=== PATIENT | male | born 1955 | race African-American/Black ===

== ENCOUNTER 2016-07-10 17:06 | Emergency (ER) | payer MEDICARE, MEDICAID ==
[~2016-07-10] VITALS: Ht 182.9 cm; Wt 79.4 kg
[~2016-07-10 17:06] MED LIST: ATRIPLA TABLET1 EAC1 ORAL; BACTRIM DS TAB1 EAC1 ORAL; DOXYCYCLINE MO100 MG ORAL; KEFLEX500 MG ORAL; NORCO 5-325 TA1 EACH ORAL; TYLENOL325 MG ORAL
[2016-07-10] MEDS ORDERED: Lidocaine 1% MPF 10mg/ml 5ml ONE (18:00)
[2016-07-10] MEDS ORDERED: Acetaminophen 500mg (ES) tab ORAL ONE (18:00)
[2016-07-10] MEDS ORDERED: Phenazopyridine 200mg tab ORAL ONE (18:00)
[2016-07-10 18:01] LABS: APPEARANCE,URINE CLEAR; KETONES,URINE 1+ (NEGATIVE); LEUKOCYTE ESTERASE ,URINE 1+ (NEGATIVE); NITRITE,URINE NEGATIVE (NEGATIVE); PH,URINE 5 (4.5-8.0); PROTEIN,URINE 2+ (NEGATIVE); UROBILINOGEN,URINE 1 MG/DL (0.0-1.0)
[2016-07-10 18:14] LABS: AMORPHOUS SEDIMENT,UR FEW /LPF; BACTERIA,URINE FEW /HPF; ICTOTEST NEGATIVE; RBC,URINE 0-2 /HPF (0 - 0)
--- NOTE | 2016-07-10 18:26 | Emergency Room Report ---
History of Present Illness General Chief Complaint: Male Urogenital Problems Source: Patient Present Illness HPI 60-year-old male presents emergency department complaining of dysuria, dark- colored urine with mal-odor with onset shortly after having recent unprotected intercourse. Patient denies hematuria, penile discharge or lesions. Patient denies nausea, vomiting, fevers or chills. Patient reports history of STDs and wants to be treated prophylactically. Patient reports immunocompromise. Denies hx of renal disease. Patient denies abdominal pain, chest pain, muscle aches or cramps. Patient denies low back pain. Denies CP, Palpitations, LOC, AMS, dizziness, Changes in Vision, Sensation, paresthesias, or a sudden severe headache. Allergies: Coded Allergies: No Known Allergies (Unverified , 02/12/14) Patient History Past Medical History: see triage record, HIV Past Surgical History: none Pertinent Family History: none Immunizations: UTD Reviewed Nursing Documentation: PMH: Agreed, PSxH: Agreed Nursing Documentation-PMH Past Medical History: No History, Except For Hx Asthma: Yes Review of Systems All Other Systems: negative except mentioned in HPI Physical Exam Vital Signs Date Time Temp Pulse Resp B/P Pulse Ox O2 Delivery O2 Flow Rate FiO2 07/10/16 17:13 99.1 105 14 124/81 99 Room Air Sp02 EP Interpretation: reviewed, normal General Appearance: no apparent distress, alert, GCS 15, non-toxic Head: normocephalic, atraumatic Eyes: bilateral eye PERRL, bilateral eye normal inspection ENT: hearing grossly normal, normal pharynx, no angioedema, normal voice Neck: full range of motion, supple/symm/no masses Respiratory: chest non-tender, lungs clear, normal breath sounds, speaking full sentences Cardiovascular #1: regular rate, rhythm, no edema Cardiovascular #2: 2+ carotid (R), 2+ carotid (L), 2+ radial (R), 2+ radial (L) , 2+ dorsalis pedis (R), 2+ dorsalis pedis (L) Gastrointestinal: normal bowel sounds, non tender, soft, no guarding, no rebound Rectal: deferred Genitourinary: normal inspection, no CVA tenderness Musculoskeletal: back normal, gait/station normal, normal range of motion, non- tender, no calf tenderness Neurologic: alert, oriented x3, responsive, motor strength/tone normal, sensory intact, speech normal Psychiatric: judgement/insight normal, memory normal, mood/affect normal, no suicidal/homicidal ideation Reflexes: 4+ bicep (R), 4+ bicep (L), 4+ tricep (R), 4+ tricep (L), 4+ knee (R) , 4+ knee (L) Skin: normal color, no rash, warm/dry, well hydrated Lymphatic: no adenopathy Medical Decision Making PA Attestation Dr. Velasquez is my supervising Physician whom patient management has been discussed with. Diagnostic Impression: Primary Impression: Urethritis Additional Impression: Dysuria ER Course Pt. presents to the ED c/o Dysuria, and dark urine s/p recent unprotected intercourse, denies N/V/F/C or muscle cramps. Ddx considered but are not limited to UTi , STI, G & C, trichomonas, Urethritis , cyst or cellulitis. Vital signs: are WNL, pt. is afebrile H&PE are most consistent with Urethritis ORDERS: -UA: few bacteria, no WBC's , leukocyte esterase is noted, UTI not suspected at this time, urine will be cultured. ED INTERVENTIONS: -250mg Rocephin IM -200mg Pyridium DISCHARGE: At this time pt. is stable for d/c to home. Will provide printed patient care instructions, and any necessary prescriptions. Care plan and follow up instructions have been discussed with the patient prior to discharge. Labs Test 07/10/16 17:32 Urine Color Brown Urine Appearance Clear Urine pH 5 (4.5-8.0) Urine Specific [place] 1.025 (1.005-1.035) Urine Protein 2+ (NEGATIVE) Urine Glucose (UA) Negative (NEGATIVE) Urine Ketones 1+ (NEGATIVE) Urine Occult Blood 1+ (NEGATIVE) Urine Nitrite Negative (NEGATIVE) Urine Bilirubin 1+ (NEGATIVE) Urine Ictotest Negative Urine Urobilinogen 1 MG/DL (0.0-1.0) Urine Leukocyte Esterase 1+ (NEGATIVE) Urine RBC 0-2 /HPF (0 - 0) Urine WBC 2-4 /HPF (0 - 0) Urine Squamous Epithelial Cells None /LPF (NONE/OCC) Urine Amorphous Sediment Few /LPF (NONE) Urine Bacteria Few /HPF (NONE) Last Vital Signs Date Time Temp Pulse Resp B/P Pulse Ox O2 Delivery O2 Flow Rate FiO2 07/10/16 17:13 99.1 105 14 124/81 99 Room Air Disposition: HOME, SELF-CARE Condition: Stable Scripts Phenazopyridine Hcl* (PYRIDIUM*) 200 Mg Tablet 200 MG ORAL THREE TIMES A DAY for 4 Days, #14 TAB 0 Refills Prov: Flores Ramirez 07/10/16 Doxycycline Hyclate* (VIBRAMYCIN*) 100 Mg Capsule 100 MG ORAL EVERY 12 HOURS for 7 Days, #14 CAP 0 Refills Prov: Flores Ramirez 07/10/16 Referrals: NON PHYSICIAN (PCP) Patient Instructions: Urethritis, Adult Additional Instructions: Take medications as directed. Follow up with PCP in 3-5 days Return sooner to ED if new symptoms occur, or current symptoms become worse. Flores Ramirez Jul 10, 2016 18:26
[2016-07-10] MEDS ORDERED: PHENAZOPYRIDIN200 MG ORAL (18:27)
[2016-07-10] MEDS ORDERED: VIBRAMYCIN100 MG ORAL (18:27)
[2016-07-10 18:47] VITALS: BP 127/83
[2016-07-10 18:51] VITALS: BP 127/83
== END 2016-07-10 18:52 | disposition home or self-care (01) ==
LOC: EMR 18:19
DX: N34.2 Other urethritis (principal); J45.909 Unspecified asthma, uncomplicated
CPT/HCPCS: 81003; 96372; 99284; J0696

== ENCOUNTER 2018-10-13 15:05 | Inpatient (IN) | payer MEDICARE, MEDICAID ==
[~2018-10-13] VITALS: Ht 182.9 cm; Wt 77.1 kg
[~2018-10-13 15:05] MED LIST changes: +PHENAZOPYRIDIN200 MG ORAL; +VIBRAMYCIN100 MG ORAL
[2018-10-13] MEDS ORDERED: TYLENOL EXTRA500 MG ORAL (15:15)
[2018-10-13] MEDS ORDERED: Acetaminophen 500mg (ES) tab ORAL ONE (15:15)
--- NOTE | 2018-10-13 15:50 | Emergency Room Report ---
History of Present Illness General Chief Complaint: General Complaint Source: Patient, EMS Present Illness HPI Patient presents with 4-5 days of increasing weakness and fever and chills. He also has a productive cough that's producing green phlegm. He also complains about swelling in his right groin. He describes this is bubbling out and then be able to be pushed back in. There are no skin lesions in that area. He is concerned about whether this is a connected to his prostate. He felt cold and bundled himself up. Paramedics stated temperature that was minimally elevated. His appetite has been poor. He feels weak. The patient is HIV positive. He states he stable on his medications. He denies previous pneumonia. No skin rashes, headache, neck stiffness, nausea, vomiting, diarrhea, dysuria or joint pain. Allergies: Coded Allergies: No Known Allergies (Unverified , 02/12/14) Patient History Past Medical History: see triage record Social History: Denies: smoking, alcohol use Social History Narrative from home Reviewed Nursing Documentation: PMH: Agreed; PSxH: Agreed Nursing Documentation-PMH Hx Asthma: Yes Review of Systems All Other Systems: negative except mentioned in HPI Physical Exam Vital Signs Date Time Temp Pulse Resp B/P (MAP) Pulse Ox O2 Delivery O2 Flow Rate FiO2 10/13/18 15:06 99.5 118 18 146/100 98 Room Air Sp02 EP Interpretation: reviewed, normal General Appearance: well appearing, no apparent distress, GCS 15 Head: normocephalic, atraumatic Eyes: bilateral eye normal inspection, bilateral eye PERRL, bilateral eye EOMI ENT: normal pharynx, moist mucus membranes Neck: supple Respiratory: no respiratory distress, decreased breath sounds, crackles - L base Cardiovascular #1: tachycardia Cardiovascular #2: 2+ radial (R) Gastrointestinal: normal inspection, normal bowel sounds, non tender, non- distended, hernia - R inguinal - easily reduced Genitourinary: penis normal, scrotum normal Musculoskeletal: back normal, normal range of motion Neurologic: alert, oriented x3, grossly normal Psychiatric: depressed affect Skin: normal inspection, warm/dry Medical Decision Making Diagnostic Impression: Primary Impression: Pneumonia Qualified Codes: J18.1 - Lobar pneumonia, unspecified organism Additional Impressions: Right inguinal hernia HIV (human immunodeficiency virus infection) Qualified Codes: B20 - Human immunodeficiency virus [HIV] disease ER Course Patient presents with fever and productive cough with history of HIV. Differential includes pneumonia, bronchitis, viral syndrome, pneumocystis amongst others. He also has a right inguinal hernia. This is nontender and easily reduced. Evaluation will be with EKG, chest x-ray and labs including blood cultures. The patient will be treated with Tylenol, fluid bolus. The patient and x-ray data antibiotics will most likely be started. Sputum culture ordered. EKG was sinus tachycardia. Chest x-ray with left lower lobe infiltrate. This does not appear classic for Pneumocystis nor does it appear like TB/SARWAT. Normal WBC, low H/H. Slightly low sodium and potassium. Lactic acid normal. Based on these findings Zosyn and Levaquin are started. BP low transiently. Bolus in ED. NAD, slightly tachycardic. Improved BP. Admit med Dr. Jc. Laboratory Tests Test 10/13/18 15:33 10/13/18 16:00 10/13/18 16:50 White Blood Count 7.4 K/UL (4.8-10.8) Red Blood Count 3.24 M/UL (4.70-6.10) L Hemoglobin 10.3 G/DL (14.2-18.0) L Hematocrit 29.5 % (42.0-52.0) L Mean Corpuscular Volume 91 FL (80-99) Mean Corpuscular Hemoglobin 31.8 PG (27.0-31.0) H Mean Corpuscular Hemoglobin Concent 35.0 G/DL (32.0-36.0) Red Cell Distribution Width 12.7 % (11.6-14.8) Platelet Count 230 K/UL (150-450) Mean Platelet Volume 5.1 FL (6.5-10.1) L Neutrophils (%) (Auto) 77.2 % (45.0-75.0) H Lymphocytes (%) (Auto) 13.7 % (20.0-45.0) L Monocytes (%) (Auto) 5.2 % (1.0-10.0) Eosinophils (%) (Auto) 3.0 % (0.0-3.0) Basophils (%) (Auto) 0.9 % (0.0-2.0) Sodium Level 132 MMOL/L (136-145) L Potassium Level 3.4 MMOL/L (3.5-5.1) L Chloride Level 99 MMOL/L (98-107) Carbon Dioxide Level 24 MMOL/L (21-32) Anion Gap 9 mmol/L (5-15) Blood Urea Nitrogen 11 mg/dL (7-18) Creatinine 1.4 MG/DL (0.55-1.30) H Estimate Glomerular Filtration Rate > 60 mL/min (>60) Glucose Level 140 MG/DL (74-106) H Lactic Acid Level 1.20 mmol/L (0.4-2.0) Calcium Level 7.9 MG/DL (8.5-10.1) L Magnesium Level 1.6 MG/DL (1.8-2.4) L Total Bilirubin 0.4 MG/DL (0.2-1.0) Aspartate Amino Transferase (AST) 19 U/L (15-37) Alanine Aminotransferase (ALT) 21 U/L (12-78) Alkaline Phosphatase 77 U/L (46-116) Total Creatine Kinase 102 U/L (26-308) Troponin I 0.003 ng/mL (0.000-0.056) Pro-B-Type Natriuretic Peptide 26 pg/mL (0-125) Total Protein 7.5 G/DL (6.4-8.2) Albumin 3.2 G/DL (3.4-5.0) L Globulin 4.3 g/dL Albumin/Globulin Ratio 0.7 (1.0-2.7) L Prothrombin Time 10.6 SEC (9.30-11.50) Prothrombin Time INR 1.0 (0.9-1.1) PTT 23 SEC (23-33) Urine Color Pale yellow Urine Appearance Clear Urine pH 6 (4.5-8.0) Urine Specific [place] 1.010 (1.005-1.035) Urine Protein 1+ (NEGATIVE) H Urine Glucose (UA) Negative (NEGATIVE) Urine Ketones Negative (NEGATIVE) Urine Blood 2+ (NEGATIVE) H Urine Nitrite Negative (NEGATIVE) Urine Bilirubin Negative (NEGATIVE) Urine Urobilinogen Normal MG/DL (0.0-1.0) Urine Leukocyte Esterase Negative (NEGATIVE) Urine RBC 2-4 /HPF (0 - 0) H Urine WBC 0-2 /HPF (0 - 0) Urine Squamous Epithelial Cells None /LPF (NONE/OCC) Urine Bacteria Few /HPF (NONE) EKG Diagnostic Results Rate: tachycardiac Rhythm: NSR ST Segments: no acute changes Rhythm Strip Diag. Results EP Interpretation: yes Rhythm: no PVC's, no ectopy, other - Sinus tachycardia Chest X-Ray Diagnostic Results Chest X-Ray Diagnostic Results : Chest X-Ray Ordered: Yes # of Views/Limited/Complete: 1 View Indication: Other EP Interpretation: Yes Interpretation: no effusion, no pneumothorax, other - LLL infiltrate Impression: Other Electronically Signed by: Electronically signed by Navjot Haley MD Last Vital Signs Date Time Temp Pulse Resp B/P (MAP) Pulse Ox O2 Delivery O2 Flow Rate FiO2 10/14/18 04:00 99.2 93 18 118/71 (87) 97 10/14/18 03:45 Room Air 10/14/18 03:23 21 Status: improved Disposition: ADMITTED INPATIENT Condition: Serious Navjot Haley MD Oct 13, 2018 15:50
[2018-10-13] MEDS ORDERED: Piperacillin/Tazobactam 3.375 GM in NS 110 ML IVPB ONE (16:00)
[2018-10-13 16:02] LABS: ANION GAP 9 mmol/L (5-15); BLOOD UREA NITROGEN 11 mg/dL (7-18); CALCIUM 7.9 MG/DL (8.5-10.1); CARBON DIOXIDE 24 MMOL/L (21-32); CHLORIDE 99 MMOL/L (98-107); CREATININE 1.4 MG/DL (0.55-1.30); POTASSIUM 3.4 MMOL/L (3.5-5.1); SODIUM 132 MMOL/L (136-145)
--- NOTE | 2018-10-13 16:07 | Diagnostic Imaging Report ---
Indication: Dyspnea Comparison: None A single view chest radiograph was obtained. Findings: Cardiomediastinal appearance is within normal limits for age. The lungs are clear. Pulmonary vascularity is appropriate. The diaphragmatic contour is smooth and costophrenic angles are sharp. No pleural effusions are identified. The bones are unremarkable. Impression: No acute findings
[2018-10-13 16:08] LABS: BASOPHILS % (AUTO) 0.9 % (0.0-2.0); HEMATOCRIT 29.5 % (42.0-52.0); HEMOGLOBIN 10.3 G/DL (14.2-18.0); LYMPHOCYTES % (AUTO) 13.7 % (20.0-45.0); MEAN CORPUSCULAR VOLUME 91 FL (80-99); MONOCYTES % (AUTO) 5.2 % (1.0-10.0); NEUTROPHILS % (AUTO) 77.2 % (45.0-75.0); PLATELET COUNT 230 K/UL (150-450); RED BLOOD COUNT 3.24 M/UL (4.70-6.10); RED CELL DISTRIBUTION WIDTH 12.7 % (11.6-14.8); WHITE BLOOD COUNT 7.4 K/UL (4.8-10.8)
[2018-10-13 16:13] LABS: ALANINE AMINOTRANSFERASE 21 U/L (12-78); ALBUMIN 3.2 G/DL (3.4-5.0); ALBUMIN/GLOBULIN RATIO 0.7 (1.0-2.7); ALKALINE PHOSPHATASE 77 U/L (46-116); ASPARTATE AMINO TRANSFERASE 19 U/L (15-37); BILIRUBIN,TOTAL 0.4 MG/DL (0.2-1.0); CREATINE KINASE 102 U/L (26-308)
[2018-10-13 16:53] VITALS: BP 106/55
[2018-10-13 17:17] LABS: APPEARANCE,URINE CLEAR; BILIRUBIN, URINE NEGATIVE (NEGATIVE); COLOR,URINE PALE YELLOW; GLUCOSE, URINE (UA) NEGATIVE (NEGATIVE); KETONES,URINE NEGATIVE (NEGATIVE); LEUKOCYTE ESTERASE ,URINE NEGATIVE (NEGATIVE); NITRITE,URINE NEGATIVE (NEGATIVE); PH,URINE 6 (4.5-8.0); PROTEIN,URINE 1+ (NEGATIVE); UROBILINOGEN,URINE NORMAL MG/DL (0.0-1.0)
--- NOTE | 2018-10-13 18:37 | Consultation ---
Consult Note Assessment/Plan electrolyte inbalance: Low Na , K , Mag Pneumonia Right inguinal hernia HIV (human immunodeficiency virus infection) Anemia Mag IV NS IV + K Anemia owen monitor Lytes per consultants Micheal Brooks MD Oct 13, 2018 18:37
[2018-10-13 20:00] VITALS: BP 104/69
[2018-10-13] MEDS ORDERED: Acetaminophen 500mg (ES) tab ORAL PRN (20:45)
[2018-10-13] MEDS ORDERED: Albuterol ud Inhalation HHN PRN (20:45)
[2018-10-13] MEDS ORDERED: Albuterol/Ipratropium 3ml neb HHN PRN (21:15)
[2018-10-13] MEDS: cefTRIAXone 1 GM in D5W 55 ML IVPB SCH (22:33)
[2018-10-14] VITALS: BP 120/75
[2018-10-14] MEDS: HYDROcodone/Acetamin 5/325 tab ORAL PRN ×3 (00:01→21:58)
[2018-10-14 04:00] VITALS: BP 118/71
[2018-10-14 07:47] LABS: BASOPHILS % (AUTO) 0.8 % (0.0-2.0); EOSINOPHILS % (AUTO) 2.9 % (0.0-3.0); HEMATOCRIT 30.7 % (42.0-52.0); HEMOGLOBIN 10.2 G/DL (14.2-18.0); LYMPHOCYTES % (AUTO) 28.4 % (20.0-45.0); MEAN CORPUSCULAR VOLUME 95 FL (80-99); MONOCYTES % (AUTO) 4.9 % (1.0-10.0); NEUTROPHILS % (AUTO) 63.1 % (45.0-75.0); PLATELET COUNT 243 K/UL (150-450); RED BLOOD COUNT 3.22 M/UL (4.70-6.10); RED CELL DISTRIBUTION WIDTH 13.1 % (11.6-14.8)
[2018-10-14 08:00] VITALS: BP 107/69
[2018-10-14 08:11] LABS: % IRON SATURATION 9 % (15-50); IRON 19 ug/dL (50-175); TOTAL IRON BINDING CAPACITY 207 ug/dL (250-450)
[2018-10-14 08:21] LABS: ALANINE AMINOTRANSFERASE 23 U/L (12-78); ALBUMIN/GLOBULIN RATIO 0.7 (1.0-2.7); ALKALINE PHOSPHATASE 72 U/L (46-116); ANION GAP 6 mmol/L (5-15); ASPARTATE AMINO TRANSFERASE 24 U/L (15-37); BILIRUBIN,TOTAL 0.3 MG/DL (0.2-1.0); BLOOD UREA NITROGEN 10 mg/dL (7-18); CALCIUM 7.7 MG/DL (8.5-10.1); CARBON DIOXIDE 27 MMOL/L (21-32); CHLORIDE 105 MMOL/L (98-107); CHOLESTEROL 126 MG/DL (< 200); CREATININE 1.2 MG/DL (0.55-1.30); FERRITIN 188 NG/ML (8-388); GAMMA GLUTAMYL TRANSPEPTIDASE 13 U/L (5-85); HDL CHOLESTEROL 71 MG/DL (40-60); PHOSPHORUS 2.9 MG/DL (2.5-4.9); POTASSIUM 3.7 MMOL/L (3.5-5.1); SODIUM 138 MMOL/L (136-145); TRIGLYCERIDES 51 MG/DL (30-150)
[2018-10-14] MEDS: Guaifenesin/DM 10ml syrup ORAL PRN (11:38)
[2018-10-14 12:00] VITALS: BP 122/74
--- NOTE | 2018-10-14 14:54 | Nephrology Progress Note ---
Assessment/Plan Problem List: (1) Pneumonia (2) HIV (human immunodeficiency virus infection) (3) Cellulitis (4) Hypocalcemia Assessment electrolyte inbalance: Low Na , K , Mag Pneumonia Right inguinal hernia HIV (human immunodeficiency virus infection) Anemia Plan folic acid- Vit D IV Iron NS + KCl per ID and consultants Subjective ROS Limited/Unobtainable: No Constitutional: Reports: malaise, weakness Objective Objective Last 24 Hour Vital Signs Date Time Temp Pulse Resp B/P (MAP) Pulse Ox O2 Delivery O2 Flow Rate FiO2 10/14/18 12:00 97.9 87 20 122/74 (90) 98 10/14/18 09:12 98.0 10/14/18 09:00 Room Air 10/14/18 08:00 98.0 87 18 107/69 (82) 98 10/14/18 04:00 99.2 93 18 118/71 (87) 97 10/14/18 03:45 Room Air 10/14/18 03:23 90 18 Room Air 21 10/14/18 00:00 98.3 87 18 120/75 (90) 95 10/13/18 21:00 Room Air 10/13/18 20:00 98.9 92 18 104/69 (81) 99 10/13/18 17:59 99.0 97 16 123/75 98 Room Air 10/13/18 16:53 104 23 Room Air 10/13/18 16:53 99.5 104 18 106/55 98 Room Air 10/13/18 16:19 99.5 10/13/18 15:06 99.5 118 18 146/100 98 Room Air Intake and Output 10/13/18 10/14/18 18:59 06:59 Intake Total 2205 ml Output Total 0 ml 600 ml Balance 0 ml 1605 ml Intake Oral 1600 ml IV Total 605 ml Output Urine Total 0 ml 600 ml # Voids 5 Laboratory Tests 10/13/18 15:33: White Blood Count 7.4, Red Blood Count 3.24L, Hemoglobin 10.3L, Hematocrit 29.5L , Mean Corpuscular Volume 91, Mean Corpuscular Hemoglobin 31.8H, Mean Corpuscular Hemoglobin Concent 35.0, Red Cell Distribution Width 12.7, Platelet Count 230, Mean Platelet Volume 5.1L, Neutrophils (%) (Auto) 77.2H, Lymphocytes (%) (Auto) 13.7L, Monocytes (%) (Auto) 5.2, Eosinophils (%) (Auto) 3.0, Basophils (%) (Auto) 0.9, Sodium Level 132L, Potassium Level 3.4L, Chloride Level 99, Carbon Dioxide Level 24, Anion Gap 9, Blood Urea Nitrogen 11, Creatinine 1.4H, Estimat Glomerular Filtration Rate > 60, Glucose Level 140H, Lactic Acid Level 1.20, Calcium Level 7.9L, Magnesium Level 1.6L, Total Bilirubin 0.4, Aspartate Amino Transf (AST/SGOT) 19, Alanine Aminotransferase ( ALT/SGPT) 21, Alkaline Phosphatase 77, Total Creatine Kinase 102, Troponin I 0.003, Pro-B-Type Natriuretic Peptide 26, Total Protein 7.5, Albumin 3.2L, Globulin 4.3, Albumin/Globulin Ratio 0.7L 10/13/18 16:00: Prothrombin Time 10.6, Prothromb Time International Ratio 1.0, Activated Partial Thromboplast Time 23 10/13/18 16:50: Urine Color Pale yellow, Urine Appearance Clear, Urine pH 6, Urine Specific [place] 1.010, Urine Protein 1+H, Urine Glucose (UA) Negative, Urine Ketones Negative, Urine Blood 2+H, Urine Nitrite Negative, Urine Bilirubin Negative, Urine Urobilinogen Normal, Urine Leukocyte Esterase Negative, Urine RBC 2-4H, Urine WBC 0-2, Urine Squamous Epithelial Cells None, Urine Bacteria Few 10/14/18 06:20: White Blood Count 6.0, Red Blood Count 3.22L, Hemoglobin 10.2L, Hematocrit 30.7L , Mean Corpuscular Volume 95, Mean Corpuscular Hemoglobin 31.6H, Mean Corpuscular Hemoglobin Concent 33.2, Red Cell Distribution Width 13.1, Platelet Count 243, Mean Platelet Volume 5.6L, Neutrophils (%) (Auto) 63.1, Lymphocytes ( %) (Auto) 28.4, Monocytes (%) (Auto) 4.9, Eosinophils (%) (Auto) 2.9, Basophils (%) (Auto) 0.8, Sodium Level 138, Potassium Level 3.7, Chloride Level 105, Carbon Dioxide Level 27, Anion Gap 6, Blood Urea Nitrogen 10, Creatinine 1.2, Estimat Glomerular Filtration Rate > 60, Glucose Level 98, Calcium Level 7.7L, Magnesium Level 2.2, Total Bilirubin 0.3, Aspartate Amino Transf (AST/SGOT) 24, Alanine Aminotransferase (ALT/SGPT) 23, Alkaline Phosphatase 72, Pro-B-Type Natriuretic Peptide 27, Total Protein 7.2, Albumin 3.0L, Globulin 4.2, Albumin/ Globulin Ratio 0.7L, Hemoglobin A1c 5.2, Osmolality 287L, Uric Acid 1.9L, Phosphorus Level 2.9, Iron Level 19L, Total Iron Binding Capacity 207L, Percent Iron Saturation 9L, Unsaturated Iron Binding 188, Ferritin 188, Gamma Glutamyl Transpeptidase 13, C-Reactive Protein, Quantitative 7.1H, Triglycerides Level 51 , Cholesterol Level 126, LDL Cholesterol 51, HDL Cholesterol 71H, Cholesterol/ HDL Ratio 1.8L, Vitamin B12 Level 319, Folate 4.0L, Thyroid Stimulating Hormone (TSH) 0.310L Height (Feet): 6 Weight (Pounds): 170 General Appearance: no apparent distress, lethargic Micheal Brooks MD October 14, 2018 14:54
[2018-10-14 16:00] VITALS: BP 101/74
[2018-10-14] MEDS ORDERED: Vitamin D 50,000 units cap ORAL SCH (16:00)
[2018-10-14] MEDS ORDERED: Iron Sucrose 200 MG in NS 110 ML IV ONE (16:30)
--- NOTE | 2018-10-14 16:44 | Consultation ---
History of Present Illness General Chief Complaint: General Complaint Present Illness Allergies: Coded Allergies: No Known Allergies (Unverified , 02/12/14) Medication History Scheduled Doxycycline Hyclate* (Vibramycin*), 100 MG ORAL EVERY 12 HOURS Efavirenz/Emtricitab/Tenofovir (Atripla), 1 TAB ORAL DAILY, (Reported) Phenazopyridine Hcl* (Pyridium*), 200 MG ORAL THREE TIMES A DAY Scheduled PRN Acetaminophen* (Tylenol Extra Strength*), 500 MG ORAL Q6H PRN for Mild Pain/ Temp > 100.5, (Reported) Hydrocodone Bit/Acetaminophen 5-325* ([place] 5-325*), 1 TAB ORAL Q6H PRN for For Pain Patient History Healthcare decision maker N Resuscitation status Full Code Advanced Directive on File Physical Exam Last 24 Hour Vital Signs Date Time Temp Pulse Resp B/P (MAP) Pulse Ox O2 Delivery O2 Flow Rate FiO2 10/14/18 12:00 97.9 87 20 122/74 (90) 98 10/14/18 09:12 98.0 10/14/18 09:00 Room Air 10/14/18 08:00 98.0 87 18 107/69 (82) 98 10/14/18 04:00 99.2 93 18 118/71 (87) 97 10/14/18 03:45 Room Air 10/14/18 03:23 90 18 Room Air 21 10/14/18 00:00 98.3 87 18 120/75 (90) 95 10/13/18 21:00 Room Air 10/13/18 20:00 98.9 92 18 104/69 (81) 99 10/13/18 17:59 99.0 97 16 123/75 98 Room Air 10/13/18 16:53 104 23 Room Air 10/13/18 16:53 99.5 104 18 106/55 98 Room Air Intake and Output 10/13/18 10/14/18 18:59 06:59 Intake Total 2205 ml Output Total 0 ml 600 ml Balance 0 ml 1605 ml Intake Oral 1600 ml IV Total 605 ml Output Urine Total 0 ml 600 ml # Voids 5 Laboratory Tests Test 10/13/18 16:50 10/14/18 06:20 Urine Color Pale yellow Urine Appearance Clear Urine pH 6 (4.5-8.0) Urine Specific [place] 1.010 (1.005-1.035) Urine Protein 1+ (NEGATIVE) H Urine Glucose (UA) Negative (NEGATIVE) Urine Ketones Negative (NEGATIVE) Urine Blood 2+ (NEGATIVE) H Urine Nitrite Negative (NEGATIVE) Urine Bilirubin Negative (NEGATIVE) Urine Urobilinogen Normal MG/DL (0.0-1.0) Urine Leukocyte Esterase Negative (NEGATIVE) Urine RBC 2-4 /HPF (0 - 0) H Urine WBC 0-2 /HPF (0 - 0) Urine Squamous Epithelial Cells None /LPF (NONE/OCC) Urine Bacteria Few /HPF (NONE) White Blood Count 6.0 K/UL (4.8-10.8) Red Blood Count 3.22 M/UL (4.70-6.10) L Hemoglobin 10.2 G/DL (14.2-18.0) L Hematocrit 30.7 % (42.0-52.0) L Mean Corpuscular Volume 95 FL (80-99) Mean Corpuscular Hemoglobin 31.6 PG (27.0-31.0) H Mean Corpuscular Hemoglobin Concent 33.2 G/DL (32.0-36.0) Red Cell Distribution Width 13.1 % (11.6-14.8) Platelet Count 243 K/UL (150-450) Mean Platelet Volume 5.6 FL (6.5-10.1) L Neutrophils (%) (Auto) 63.1 % (45.0-75.0) Lymphocytes (%) (Auto) 28.4 % (20.0-45.0) Monocytes (%) (Auto) 4.9 % (1.0-10.0) Eosinophils (%) (Auto) 2.9 % (0.0-3.0) Basophils (%) (Auto) 0.8 % (0.0-2.0) Sodium Level 138 MMOL/L (136-145) Potassium Level 3.7 MMOL/L (3.5-5.1) Chloride Level 105 MMOL/L (98-107) Carbon Dioxide Level 27 MMOL/L (21-32) Anion Gap 6 mmol/L (5-15) Blood Urea Nitrogen 10 mg/dL (7-18) Creatinine 1.2 MG/DL (0.55-1.30) Estimat Glomerular Filtration Rate > 60 mL/min (>60) Glucose Level 98 MG/DL (74-106) Hemoglobin A1c 5.2 % (4.3-6.0) Osmolality 287 mOsm/kg (297-317) L Uric Acid 1.9 MG/DL (2.6-7.2) L Calcium Level 7.7 MG/DL (8.5-10.1) L Phosphorus Level 2.9 MG/DL (2.5-4.9) Magnesium Level 2.2 MG/DL (1.8-2.4) Iron Level 19 ug/dL (50-175) L Total Iron Binding Capacity 207 ug/dL (250-450) L Percent Iron Saturation 9 % (15-50) L Unsaturated Iron Binding 188 ug/dL (112-346) Ferritin 188 NG/ML (8-388) Total Bilirubin 0.3 MG/DL (0.2-1.0) Gamma Glutamyl Transpeptidase 13 U/L (5-85) Aspartate Amino Transf (AST/SGOT) 24 U/L (15-37) Alanine Aminotransferase (ALT/SGPT) 23 U/L (12-78) Alkaline Phosphatase 72 U/L (46-116) C-Reactive Protein, Quantitative 7.1 mg/dL (0.00-0.90) H Pro-B-Type Natriuretic Peptide 27 pg/mL (0-125) Total Protein 7.2 G/DL (6.4-8.2) Albumin 3.0 G/DL (3.4-5.0) L Globulin 4.2 g/dL Albumin/Globulin Ratio 0.7 (1.0-2.7) L Triglycerides Level 51 MG/DL (30-150) Cholesterol Level 126 MG/DL (< 200) LDL Cholesterol 51 mg/dL (<100) HDL Cholesterol 71 MG/DL (40-60) H Cholesterol/HDL Ratio 1.8 (3.3-4.4) L Vitamin B12 Level 319 PG/ML (193-986) Folate 4.0 NG/ML (8.6-58.9) L Thyroid Stimulating Hormone (TSH) 0.310 uiU/mL (0.358-3.740) Height (Feet): 6 Weight (Pounds): 170 Medications Current Medications Medications (Trade) Dose Ordered Sig/Jazlyn Route PRN Reason Start Time Stop Time Status Last Admin Dose Admin Acetaminophen (Tylenol) 500 mg Q6H PRN ORAL Mild Pain/Temp > 100.5 10/13/18 20:45 11/12/18 20:44 Acetaminophen/ Hydrocodone Bitart ([place] 5/325) 1 tab Q6H PRN ORAL Moderate Pain (Pain Scale 4-6) 10/13/18 20:45 10/20/18 20:44 10/14/18 08:42 Albuterol/ Ipratropium (Albuterol/ Ipratropium) 3 ml Q4H PRN HHN Shortness of Breath 10/13/18 21:15 10/18/18 21:14 Calcitriol (Rocaltrol) 0.5 mcg DAILY ORAL 10/15/18 09:00 11/14/18 08:59 Calcium Carbonate (Os-Justice) 2,500 mg THREE TIMES A DAY ORAL 10/14/18 18:00 11/13/18 17:59 Ceftriaxone Sodium 1 gm/ Dextrose 55 ml @ 110 mls/hr Q24H IVPB 10/13/18 22:00 10/20/18 21:59 10/13/18 22:33 Dextrose/ Electrolytes 1,000 ml @ 50 mls/hr Q20H IV 10/13/18 18:45 11/12/18 18:44 10/14/18 14:05 Docusate Sodium (Colace) 100 mg TWICE A DAY ORAL 10/14/18 18:00 11/13/18 17:59 Ergocalciferol (Drisdol) 50,000 intlu QWEEK ORAL 10/14/18 16:00 11/13/18 15:59 Folic Acid (Folate) 5 mg DAILY ORAL 10/14/18 15:00 11/13/18 14:59 10/14/18 15:31 Guaifenesin/ Dextromethorphan (Robitussin DM Syrup) 5 ml Q4H PRN ORAL For Cough 10/13/18 20:45 11/12/18 20:44 10/14/18 11:38 Iron Sucrose 200 mg/Sodium Chloride 120 ml @ 240 mls/hr ONCE ONCE IV 10/14/18 16:30 10/14/18 16:59 Non-Formulary Medication (Non-Formulary Med) 1 ea DAILY ORAL 10/14/18 09:00 11/13/18 08:59 UNV Assessment/Plan Assessment/Plan: Hematology Consultation REQ MD: Grecia Jc DOS: 10/14/18 RFC: Anemia evaluation, Folic Acid Deficiency ID 62 y old male presents with 4-5 days of increasing weakness and fever and chills. He also has a productive cough that's producing green phlegm. He also complains about swelling in his right groin. He describes this is bubbling out and then be able to be pushed back in. There are no skin lesions in that area. He is concerned about whether this is a connected to his prostate. He felt cold and bundled himself up. Paramedics stated temperature that was minimally elevated. His appetite has been poor. He feels weak. The patient is HIV positive. He states he stable on his medications. He denies previous pneumonia. No skin rashes, headache, neck stiffness, nausea, vomiting, diarrhea , dysuria or joint pain. Noted to have anemia and folic acid deficiency and heme was consulted. Coded Allergies: No Known Allergies (Unverified , 02/12/14) Past Medical History: see triage record Social History: Denies: smoking, alcohol use Social History Narrative from home Reviewed Nursing Documentation: PMH: Agreed; PSxH: Agreed Hx Asthma: Yes Review of systems: negative except mentioned in HPI PE Vital Signs Date Time Temp Pulse Resp B/P (MAP) Pulse Ox O2 Delivery O2 Flow Rate FiO2 10/13/18 15:06 99.5 118 18 146/100 98 Room Air Sat: reviewed, normal Gen: well appearing, no apparent distress, GCS 15 Head: normocephalic, atraumatic Eyes: bilateral eye normal inspection, bilateral eye PERRL, bilateral eye EOMI ENT: normal pharynx, moist mucus membranes Neck: supple Respiratory: no respiratory distress, decreased breath sounds, crackles - L base CV: tachycardia consistent GI: normal inspection, normal bowel sounds, non tender, non-distended, hernia - R inguinal - easily reduced Genitourinary: penis normal, scrotum normal MSK: back normal, normal range of motion Neurologic: alert, oriented x3, grossly normal Psychiatric: depressed affect Skin: normal inspection Last 24 Hour Vital Signs Date Time Temp Pulse Resp B/P (MAP) Pulse Ox O2 Delivery O2 Flow Rate FiO2 10/14/18 12:00 97.9 87 20 122/74 (90) 98 10/14/18 09:12 98.0 10/14/18 09:00 Room Air 10/14/18 08:00 98.0 87 18 107/69 (82) 98 10/14/18 04:00 99.2 93 18 118/71 (87) 97 10/14/18 03:45 Room Air 10/14/18 03:23 90 18 Room Air 21 10/14/18 00:00 98.3 87 18 120/75 (90) 95 10/13/18 21:00 Room Air 10/13/18 20:00 98.9 92 18 104/69 (81) 99 10/13/18 17:59 99.0 97 16 123/75 98 Room Air 10/13/18 16:53 104 23 Room Air 10/13/18 16:53 99.5 104 18 106/55 98 Room Air Laboratory Tests Test 10/13/18 16:50 10/14/18 06:20 Urine Color Pale yellow Urine Appearance Clear Urine pH 6 (4.5-8.0) Urine Specific [place] 1.010 (1.005-1.035) Urine Protein 1+ (NEGATIVE) H Urine Glucose (UA) Negative (NEGATIVE) Urine Ketones Negative (NEGATIVE) Urine Blood 2+ (NEGATIVE) H Urine Nitrite Negative (NEGATIVE) Urine Bilirubin Negative (NEGATIVE) Urine Urobilinogen Normal MG/DL (0.0-1.0) Urine Leukocyte Esterase Negative (NEGATIVE) Urine RBC 2-4 /HPF (0 - 0) H Urine WBC 0-2 /HPF (0 - 0) Urine Squamous Epithelial Cells None /LPF (NONE/OCC) Urine Bacteria Few /HPF (NONE) White Blood Count 6.0 K/UL (4.8-10.8) Red Blood Count 3.22 M/UL (4.70-6.10) L Hemoglobin 10.2 G/DL (14.2-18.0) L Hematocrit 30.7 % (42.0-52.0) L Mean Corpuscular Volume 95 FL (80-99) Mean Corpuscular Hemoglobin 31.6 PG (27.0-31.0) H Mean Corpuscular Hemoglobin Concent 33.2 G/DL (32.0-36.0) Red Cell Distribution Width 13.1 % (11.6-14.8) Platelet Count 243 K/UL (150-450) Mean Platelet Volume 5.6 FL (6.5-10.1) L Neutrophils (%) (Auto) 63.1 % (45.0-75.0) Lymphocytes (%) (Auto) 28.4 % (20.0-45.0) Monocytes (%) (Auto) 4.9 % (1.0-10.0) Eosinophils (%) (Auto) 2.9 % (0.0-3.0) Basophils (%) (Auto) 0.8 % (0.0-2.0) Sodium Level 138 MMOL/L (136-145) Potassium Level 3.7 MMOL/L (3.5-5.1) Chloride Level 105 MMOL/L (98-107) Carbon Dioxide Level 27 MMOL/L (21-32) Anion Gap 6 mmol/L (5-15) Blood Urea Nitrogen 10 mg/dL (7-18) Creatinine 1.2 MG/DL (0.55-1.30) Estimat Glomerular Filtration Rate > 60 mL/min (>60) Glucose Level 98 MG/DL (74-106) Hemoglobin A1c 5.2 % (4.3-6.0) Osmolality 287 mOsm/kg (297-317) L Uric Acid 1.9 MG/DL (2.6-7.2) L Calcium Level 7.7 MG/DL (8.5-10.1) L Phosphorus Level 2.9 MG/DL (2.5-4.9) Magnesium Level 2.2 MG/DL (1.8-2.4) Iron Level 19 ug/dL (50-175) L Total Iron Binding Capacity 207 ug/dL (250-450) L Percent Iron Saturation 9 % (15-50) L Unsaturated Iron Binding 188 ug/dL (112-346) Ferritin 188 NG/ML (8-388) Total Bilirubin 0.3 MG/DL (0.2-1.0) Gamma Glutamyl Transpeptidase 13 U/L (5-85) Aspartate Amino Transf (AST/SGOT) 24 U/L (15-37) Alanine Aminotransferase (ALT/SGPT) 23 U/L (12-78) Alkaline Phosphatase 72 U/L (46-116) C-Reactive Protein, Quantitative 7.1 mg/dL (0.00-0.90) H Pro-B-Type Natriuretic Peptide 27 pg/mL (0-125) Total Protein 7.2 G/DL (6.4-8.2) Albumin 3.0 G/DL (3.4-5.0) L Globulin 4.2 g/dL Albumin/Globulin Ratio 0.7 (1.0-2.7) L Triglycerides Level 51 MG/DL (30-150) Cholesterol Level 126 MG/DL (< 200) LDL Cholesterol 51 mg/dL (<100) HDL Cholesterol 71 MG/DL (40-60) H Cholesterol/HDL Ratio 1.8 (3.3-4.4) L Vitamin B12 Level 319 PG/ML (193-986) Folate 4.0 NG/ML (8.6-58.9) L Thyroid Stimulating Hormone (TSH) 0.310 uiU/mL (0.358-3.740) Current Medications Medications (Trade) Dose Ordered Sig/Jazlyn Route PRN Reason Start Time Stop Time Status Last Admin Dose Admin Acetaminophen (Tylenol) 500 mg Q6H PRN ORAL Mild Pain/Temp > 100.5 10/13/18 20:45 11/12/18 20:44 Acetaminophen/ Hydrocodone Bitart ([place] 5/325) 1 tab Q6H PRN ORAL Moderate Pain (Pain Scale 4-6) 10/13/18 20:45 10/20/18 20:44 10/14/18 08:42 Albuterol/ Ipratropium (Albuterol/ Ipratropium) 3 ml Q4H PRN HHN Shortness of Breath 10/13/18 21:15 10/18/18 21:14 Calcitriol (Rocaltrol) 0.5 mcg DAILY ORAL 10/15/18 09:00 11/14/18 08:59 Calcium Carbonate (Os-Justice) 2,500 mg THREE TIMES A DAY ORAL 10/14/18 18:00 11/13/18 17:59 Ceftriaxone Sodium 1 gm/ Dextrose 55 ml @ 110 mls/hr Q24H IVPB 10/13/18 22:00 10/20/18 21:59 10/13/18 22:33 Dextrose/ Electrolytes 1,000 ml @ 50 mls/hr Q20H IV 10/13/18 18:45 11/12/18 18:44 10/14/18 14:05 Docusate Sodium (Colace) 100 mg TWICE A DAY ORAL 10/14/18 18:00 11/13/18 17:59 Ergocalciferol (Drisdol) 50,000 intlu QWEEK ORAL 10/14/18 16:00 11/13/18 15:59 Folic Acid (Folate) 5 mg DAILY ORAL 10/14/18 15:00 11/13/18 14:59 10/14/18 15:31 Guaifenesin/ Dextromethorphan (Robitussin DM Syrup) 5 ml Q4H PRN ORAL For Cough 10/13/18 20:45 11/12/18 20:44 10/14/18 11:38 Iron Sucrose 200 mg/Sodium Chloride 120 ml @ 240 mls/hr ONCE ONCE IV 10/14/18 16:30 10/14/18 16:59 Non-Formulary Medication (Non-Formulary Med) 1 ea DAILY ORAL 10/14/18 09:00 11/13/18 08:59 UNV Assessment and Recs: # Anemia of chronic disease (or of iron deficiency) due to underlying chronic medical issues, multifactorial --> Anemia workup has been ordered, rule out gi bleed --> No evidence of hemolysis is noted, peripheral smear has been reviewed. --> Hgb goal >7. Transfuse prn. --> Epogen or iron at this time is not particularly indicated --> Medications have been reviewed --> evaluate with Gi team prn --> transfuse if hgb is < 7 (will trend CBC daily) --> low threshold for gi evaluation in case has occult + # Anemia of folic acid deficiency --> continue on folic acid deficiency # Pneumonia --> on abx have been started # Right inguinal hernia --> reducible, not incarcerated # HIV (human immunodeficiency virus infection) --> on hiv-meds The timing of this note does not necessarily reflect the time of the patient was seen. Greatly appreciate consultation! Lewis Roper MD October 14, 2018 16:44
[2018-10-14] MEDS: Docusate 100mg cap ORAL SCH (17:29)
[2018-10-14 19:03] LABS: INR 0.9 (0.9-1.1)
--- NOTE | 2018-10-14 19:45 | Consultation ---
DATE OF CONSULTATION: 10/14/2018 INFECTIOUS DISEASE CONSULTATION CONSULTING PHYSICIAN: Alvin Mendez M.D. PRIMARY ATTENDING PHYSICIAN: Grecia Jc M.D. REASON FOR CONSULT: HIV and bronchitis. HISTORY OF PRESENT ILLNESS: This 62-year-old male admitted yesterday from home complaining fever, chills, weakness, and productive cough for four to five days. He had no significant fever or leukocytosis in the hospital. PAST MEDICAL HISTORY: Significant for HIV since 22 years ago. The patient goes to [facility] for treatment, getting Atripla. States that the last time virus was undetectable. ALLERGIES: No known drug allergies. MEDICATIONS: Getting ceftriaxone, albuterol and ipratropium, Tylenol, [place], guaifenesin, and dexamethasone. Got a dose of Zosyn and Levaquin in the ER. SOCIAL HISTORY: Smoker of cigar every three or four days. He is . Denies alcohol or drug abuse. Lives alone. Working as a caterer. REVIEW OF SYSTEMS: Subjective fever at home. No shortness of breath. Coughing. No nausea. No vomiting. No problem passing urine. The patient is ambulatory. PHYSICAL EXAMINATION: VITAL SIGNS: Temperature 98, pulse 87, and blood pressure 107/69. GENERAL APPEARANCE: No acute distress. Seems to be thin. HEAD AND NECK: [place] conjunctivae. The patient has dental caries. HEART: Normal rate. LUNGS: Clear. ABDOMEN: Soft and nontender. EXTREMITIES: No edema. NEUROLOGIC: He is awake, alert, and oriented. LABORATORY AND DIAGNOSTIC DATA: WBC 6000, hemoglobin 10.2, hematocrit , and platelets 243,000. Sodium 138, potassium 3.7, chloride 105, bicarb 27, BUN 10, and creatinine 1.2. Chest x-ray, no acute findings. IMPRESSION: Bronchitis, has chronic obstructive pulmonary disease, has human immunodeficiency virus for 22 years, has anemia, has right inguinal hernia. RECOMMENDATION: Continue Rocephin. Continue Atripla. We called pharmacy for supply of Atripla. We will follow up the lab and cultures. At the end of my exam, I thank Dr. Jc for involving me in the care of this patient. Alvin Mendez M.D. DR: ILEANA JOB#: [id number] CC:
[2018-10-14 20:00] VITALS: BP 124/88
[2018-10-14] MEDS ORDERED: ATRIPLA ORAL SCH (20:00)
[2018-10-14] MEDS: cefTRIAXone 1 GM in D5W 55 ML IVPB SCH (21:39)
[2018-10-15] VITALS: BP 113/80
[2018-10-15] MEDS: Guaifenesin/DM 10ml syrup ORAL PRN ×2 (03:21→17:00)
[2018-10-15 04:00] VITALS: BP 121/77
--- NOTE | 2018-10-15 04:00 | History and Physical Report ---
DATE OF ADMISSION: 10/13/2018 HISTORY OF PRESENT ILLNESS: The patient comes in. He was admitted for azotemia, low potassium, low magnesium, pneumonia. The patient has history of HIV. Again, the patient is admitted for electrolyte imbalance as well as pneumonia. The patient states that he has been having shortness of breath for the past three days as well as productive cough. He has HIV for many years. Denies nausea, vomiting, or diarrhea. Denies chills. Denies wheezing. Denies sinus headaches. PAST MEDICAL HISTORY: Significant for AIDS, constipation, history of bursitis, history of hypercalcemia, and history of hernia. PAST SURGICAL HISTORY: None. ALLERGIES: None. MEDICATIONS: He takes Atripla and cannot tell me the name of other medications. SOCIAL HISTORY: He has history of smoking. Denies alcohol or illicit drugs. Lives at home. FAMILY HISTORY: Noncontributory. REVIEW OF SYSTEMS: HEENT: Denies headaches. RESPIRATORY: Reports shortness of breath and nonproductive cough for three days. Denies wheezing. CARDIOVASCULAR: Denies chest pain or orthopnea. GASTROINTESTINAL: Denies nausea, vomiting, or diarrhea. . PHYSICAL EXAMINATION: VITAL SIGNS: Temperature 99.2, pulse 93, and blood pressure is 118/71. HEENT: PERRLA. NECK: Supple. No lymphadenopathy. CHEST: Clear to auscultation. CARDIOVASCULAR: Regular rate and rhythm. No murmurs or extra sounds. GASTROINTESTINAL: Soft, nontender, and nondistended. No organomegaly. EXTREMITIES: No edema. Moves all four extremities . LABORATORY AND DIAGNOSTIC DATA: Chest x-ray shows pneumonia. Laboratory subramanian, WBC of 7.4, hemoglobin 10.3, and platelets of 230. Sodium 132, potassium 3.4, carbon dioxide of 24, BUN of 11, creatinine 1.4, and glucose of 140. ASSESSMENT AND PLAN: Pneumonia, electrolyte imbalance, azotemia. I have asked Dr. Alvin eMndez to see the patient for the above-mentioned diagnoses and treatment. Grecia Jc M.D. DR: ILAN JOB#: [id number] CC:
[2018-10-15 05:34] LABS: BASOPHILS % (AUTO) 0.4 % (0.0-2.0); EOSINOPHILS % (AUTO) 4.6 % (0.0-3.0); HEMATOCRIT 32.2 % (42.0-52.0); HEMOGLOBIN 10.6 G/DL (14.2-18.0); LYMPHOCYTES % (AUTO) 30.1 % (20.0-45.0); MEAN CORPUSCULAR VOLUME 96 FL (80-99); MONOCYTES % (AUTO) 5.8 % (1.0-10.0); NEUTROPHILS % (AUTO) 59.1 % (45.0-75.0); PLATELET COUNT 228 K/UL (150-450); RED BLOOD COUNT 3.35 M/UL (4.70-6.10); RED CELL DISTRIBUTION WIDTH 12.9 % (11.6-14.8); WHITE BLOOD COUNT 5.5 K/UL (4.8-10.8)
[2018-10-15 05:55] LABS: ALANINE AMINOTRANSFERASE 22 U/L (12-78); ALBUMIN 2.9 G/DL (3.4-5.0); ALBUMIN/GLOBULIN RATIO 0.6 (1.0-2.7); ALKALINE PHOSPHATASE 69 U/L (46-116); ANION GAP 8 mmol/L (5-15); ASPARTATE AMINO TRANSFERASE 21 U/L (15-37); BILIRUBIN,TOTAL 0.2 MG/DL (0.2-1.0); BLOOD UREA NITROGEN 13 mg/dL (7-18); CALCIUM 8.5 MG/DL (8.5-10.1); CARBON DIOXIDE 26 MMOL/L (21-32); CHLORIDE 103 MMOL/L (98-107); CREATININE 1.2 MG/DL (0.55-1.30); PHOSPHORUS 3.2 MG/DL (2.5-4.9); POTASSIUM 3.7 MMOL/L (3.5-5.1); SODIUM 137 MMOL/L (136-145)
[2018-10-15 08:00] VITALS: BP 136/89
[2018-10-15] MEDS: Docusate 100mg cap ORAL SCH ×3 (08:29→16:58)
[2018-10-15] MEDS ORDERED: Calcitriol 0.5mcg Cap ORAL SCH (09:00)
[2018-10-15] MEDS ORDERED: ATRIPLA ORAL SCH (09:00)
[2018-10-15 12:00] VITALS: BP 131/80
--- NOTE | 2018-10-15 12:21 | Infectious Diseases Prog Note ---
Assessment/Plan Assessment/Plan IMPRESSION: Bronchitis, chronic obstructive pulmonary disease, human immunodeficiency virus , anemia, right inguinal hernia. RECOMMENDATION: Continue Rocephin in hospital In case of dischatge PO Levaquin X 3 days. Continue Atripla. Subjective ROS Limited/Unobtainable: No Constitutional: Reports: no symptoms, other - feels better Respiratory: Reports: no symptoms Gastrointestinal/Abdominal: Reports: no symptoms Genitourinary: Reports: no symptoms Allergies: Coded Allergies: No Known Allergies (Unverified , 02/12/14) Objective Vital Signs Last 24 Hour Vital Signs Date Time Temp Pulse Resp B/P (MAP) Pulse Ox O2 Delivery O2 Flow Rate FiO2 10/15/18 09:00 Room Air 10/15/18 08:00 97.9 85 19 136/89 (105) 98 10/15/18 04:00 99.0 86 16 121/77 (92) 95 10/15/18 00:00 98.6 87 16 113/80 (91) 95 10/14/18 21:36 82 20 Room Air 21 10/14/18 21:00 Room Air 10/14/18 20:00 99.0 81 16 124/88 (100) 95 10/14/18 16:00 98.2 85 20 101/74 (83) 96 Height (Feet): 6 Weight (Pounds): 170 General Appearance: no acute distress HEENT: mucous membranes moist Respiratory/Chest: lungs clear Cardiovascular: normal rate Abdomen: soft, non tender Extremities: no edema Neurologic/Psychiatric: alert, oriented x 3, responsive Microbiology Date/Time Source Procedure Growth Status 10/13/18 15:33 Blood Blood Culture - Preliminary NO GROWTH AFTER 24 HOURS Resulted 10/13/18 15:20 Blood Blood Culture - Preliminary NO GROWTH AFTER 24 HOURS Resulted 10/13/18 16:30 Sputum Expectorated Gram Stain - Final Complete 10/13/18 16:30 Sputum Expectorated Sputum Culture - Final NORMAL UPPER RESPIRATORY RADHA PRESENT Complete Laboratory Tests Test 10/14/18 18:30 10/15/18 05:05 Prothrombin Time 10.0 SEC (9.30-11.50) Prothromb Time International Ratio 0.9 (0.9-1.1) Fibrinogen 367 mg/dL (200-400) White Blood Count 5.5 K/UL (4.8-10.8) Red Blood Count 3.35 M/UL (4.70-6.10) L Hemoglobin 10.6 G/DL (14.2-18.0) L Hematocrit 32.2 % (42.0-52.0) L Mean Corpuscular Volume 96 FL (80-99) Mean Corpuscular Hemoglobin 31.6 PG (27.0-31.0) H Mean Corpuscular Hemoglobin Concent 33.0 G/DL (32.0-36.0) Red Cell Distribution Width 12.9 % (11.6-14.8) Platelet Count 228 K/UL (150-450) Mean Platelet Volume 5.5 FL (6.5-10.1) L Neutrophils (%) (Auto) 59.1 % (45.0-75.0) Lymphocytes (%) (Auto) 30.1 % (20.0-45.0) Monocytes (%) (Auto) 5.8 % (1.0-10.0) Eosinophils (%) (Auto) 4.6 % (0.0-3.0) H Basophils (%) (Auto) 0.4 % (0.0-2.0) Sodium Level 137 MMOL/L (136-145) Potassium Level 3.7 MMOL/L (3.5-5.1) Chloride Level 103 MMOL/L (98-107) Carbon Dioxide Level 26 MMOL/L (21-32) Anion Gap 8 mmol/L (5-15) Blood Urea Nitrogen 13 mg/dL (7-18) Creatinine 1.2 MG/DL (0.55-1.30) Estimat Glomerular Filtration Rate > 60 mL/min (>60) Glucose Level 127 MG/DL (74-106) H Calcium Level 8.5 MG/DL (8.5-10.1) Calcium (Send out) Pending Phosphorus Level 3.2 MG/DL (2.5-4.9) Magnesium Level 1.9 MG/DL (1.8-2.4) Total Bilirubin 0.2 MG/DL (0.2-1.0) Aspartate Amino Transf (AST/SGOT) 21 U/L (15-37) Alanine Aminotransferase (ALT/SGPT) 22 U/L (12-78) Alkaline Phosphatase 69 U/L (46-116) Total Protein 7.4 G/DL (6.4-8.2) Albumin 2.9 G/DL (3.4-5.0) L Globulin 4.5 g/dL Albumin/Globulin Ratio 0.6 (1.0-2.7) L Parathyroid Hormone (Intact) Pending Cortisol AM Sample 7.8 UG/DL Current Medications Medications (Trade) Dose Ordered Sig/Jazlyn Route PRN Reason Start Time Stop Time Status Last Admin Dose Admin Acetaminophen (Tylenol) 500 mg Q6H PRN ORAL Mild Pain/Temp > 100.5 10/13/18 20:45 11/12/18 20:44 Acetaminophen/ Hydrocodone Bitart ([place] 5/325) 1 tab Q6H PRN ORAL Moderate Pain (Pain Scale 4-6) 10/13/18 20:45 10/20/18 20:44 10/14/18 21:58 Albuterol/ Ipratropium (Albuterol/ Ipratropium) 3 ml Q4H PRN HHN Shortness of Breath 10/13/18 21:15 10/18/18 21:14 Calcitriol (Rocaltrol) 0.5 mcg DAILY ORAL 10/15/18 09:00 11/14/18 08:59 10/15/18 08:29 Calcium Carbonate (Os-Justice) 2,500 mg THREE TIMES A DAY ORAL 10/14/18 18:00 11/13/18 17:59 10/15/18 08:29 Ceftriaxone Sodium 1 gm/ Dextrose 55 ml @ 110 mls/hr Q24H IVPB 10/13/18 22:00 10/20/18 21:59 10/14/18 21:39 Dextrose/ Electrolytes 1,000 ml @ 50 mls/hr Q20H IV 10/13/18 18:45 11/12/18 18:44 10/15/18 11:24 Docusate Sodium (Colace) 100 mg TWICE A DAY ORAL 10/14/18 18:00 11/13/18 17:59 10/14/18 17:29 Ergocalciferol (Drisdol) 50,000 intlu QWEEK ORAL 10/14/18 16:00 11/13/18 15:59 10/14/18 16:47 Folic Acid (Folate) 5 mg DAILY ORAL 10/14/18 15:00 11/13/18 14:59 5/2/19 08:29 Guaifenesin/ Dextromethorphan (Robitussin DM Syrup) 5 ml Q4H PRN ORAL For Cough 10/13/18 20:45 11/12/18 20:44 10/15/18 03:21 Patient Own Medication (Patient's Own Med) 1 ea DAILY ORAL 10/15/18 09:00 11/14/18 08:59 10/15/18 08:30 Alvin Mendez MD October 15, 2018 12:21
--- NOTE | 2018-10-15 13:45 | Nephrology Progress Note ---
Assessment/Plan Problem List: (1) Pneumonia (2) HIV (human immunodeficiency virus infection) (3) Cellulitis (4) Hypocalcemia Assessment electrolyte inbalance: Low Na , K , Mag Pneumonia Right inguinal hernia HIV (human immunodeficiency virus infection) Anemia Plan folic acid- Vit D IV Iron NS + KCl per ID and consultants Subjective ROS Limited/Unobtainable: No Constitutional: Reports: malaise Objective Objective Last 24 Hour Vital Signs Date Time Temp Pulse Resp B/P (MAP) Pulse Ox O2 Delivery O2 Flow Rate FiO2 10/15/18 12:00 98.0 76 19 131/80 (97) 98 10/15/18 09:00 Room Air 10/15/18 08:00 97.9 85 19 136/89 (105) 98 10/15/18 04:00 99.0 86 16 121/77 (92) 95 10/15/18 00:00 98.6 87 16 113/80 (91) 95 10/14/18 21:36 82 20 Room Air 21 10/14/18 21:00 Room Air 10/14/18 20:00 99.0 81 16 124/88 (100) 95 10/14/18 16:00 98.2 85 20 101/74 (83) 96 Intake and Output 10/14/18 10/15/18 19:00 07:00 Intake Total 2200 ml 1175 ml Output Total 700 ml 700 ml Balance 1500 ml 475 ml Intake Oral 1600 ml 650 ml IV Total 600 ml 525 ml Output Urine Total 700 ml 700 ml # Voids 6 Laboratory Tests 10/14/18 18:30: Prothrombin Time 10.0, Prothromb Time International Ratio 0.9, Fibrinogen 367 10/15/18 05:05: White Blood Count 5.5, Red Blood Count 3.35L, Hemoglobin 10.6L, Hematocrit 32.2L , Mean Corpuscular Volume 96, Mean Corpuscular Hemoglobin 31.6H, Mean Corpuscular Hemoglobin Concent 33.0, Red Cell Distribution Width 12.9, Platelet Count 228, Mean Platelet Volume 5.5L, Neutrophils (%) (Auto) 59.1, Lymphocytes ( %) (Auto) 30.1, Monocytes (%) (Auto) 5.8, Eosinophils (%) (Auto) 4.6H, Basophils (%) (Auto) 0.4, Sodium Level 137, Potassium Level 3.7, Chloride Level 103, Carbon Dioxide Level 26, Anion Gap 8, Blood Urea Nitrogen 13, Creatinine 1.2, Estimat Glomerular Filtration Rate > 60, Glucose Level 127H, Calcium Level 8.5, Calcium (Send out) [Pending], Phosphorus Level 3.2, Magnesium Level 1.9, Total Bilirubin 0.2, Aspartate Amino Transf (AST/SGOT) 21, Alanine Aminotransferase (ALT/SGPT) 22, Alkaline Phosphatase 69, Total Protein 7.4, Albumin 2.9L, Globulin 4.5, Albumin/Globulin Ratio 0.6L, Parathyroid Hormone ( Intact) [Pending], Cortisol AM Sample 7.8 Height (Feet): 6 Weight (Pounds): 170 General Appearance: no apparent distress Cardiovascular: normal rate Respiratory/Chest: decreased breath sounds Abdomen: soft, distended Micheal Brooks MD October 15, 2018 13:45
--- NOTE | 2018-10-15 14:41 | Cardiology Report ---
APPROVED REPORT EKG Measurement Heart [id number] Sin[address] Nonspecific ST and T wave abnormality Abnormal ECG
--- NOTE | 2018-10-15 14:43 | General Progress Note ---
Assessment/Plan Assessment/Plan: Assessment and Recs: # Anemia of chronic disease due to underlying chronic medical issues, multifactorial --> Anemia workup has been ordered, rule out gi bleed, ferritin sufficiently high, hold off on iron --> No evidence of hemolysis is noted, peripheral smear has been reviewed. --> Hgb goal >7. Transfuse prn. --> Epogen or iron at this time is not particularly indicated --> Medications have been reviewed --> evaluate with Gi team prn --> transfuse if hgb is < 7 (will trend CBC daily) --> low threshold for gi evaluation in case has occult + # Anemia of folic acid deficiency --> continue on folic acid deficiency # Pneumonia --> on abx have been started # Right inguinal hernia --> reducible, not incarcerated # HIV (human immunodeficiency virus infection) --> on hiv-meds The timing of this note does not necessarily reflect the time of the patient was seen. Greatly appreciate consultation! Subjective Constitutional: Denies: no symptoms, chills, diaphoresis, fever, malaise, weakness, other HEENT: Denies: no symptoms, eye pain, blurred vision, tearing, double vision, ear pain, ear discharge, nose pain, nose congestion, throat pain, throat swelling, mouth pain, mouth swelling, other Cardiovascular: Denies: no symptoms, chest pain, edema, irregular heart rate, lightheadedness, palpitations, syncope, other Respiratory: Denies: no symptoms, cough, orthopnea, shortness of breath, SOB with excertion, SOB at rest, sputum, stridor, wheezing, other Gastrointestinal/Abdominal: Denies: no symptoms, abdomen distended, abdominal pain, black stools, tarry stools, blood in stool, constipated, diarrhea, difficulty swallowing, nausea, poor appetite, poor fluid intake, rectal bleeding , vomiting, other Genitourinary: Denies: no symptoms, burning, discharge, frequency, flank pain, hematuria, incontinence, pain, urgency, other Neurologic/Psychiatric: Denies: no symptoms, anxiety, depressed, emotional problems, headache, numbness, paresthesia, pre-existing deficit, seizure, tingling, tremors, weakness, other Endocrine: Denies: no symptoms, excessive sweating, flushing, intolerance to cold, intolerance to heat, increased hunger, increased thirst, increased urine, unexplained weight gain, unexplained weight loss, other Allergies: Coded Allergies: No Known Allergies (Unverified , 02/12/14) Subjective 10/15/18: no events, wants to be discharged, no f/c Objective Last 24 Hour Vital Signs Date Time Temp Pulse Resp B/P (MAP) Pulse Ox O2 Delivery O2 Flow Rate FiO2 10/15/18 12:00 98.0 76 19 131/80 (97) 98 10/15/18 09:00 Room Air 10/15/18 08:00 97.9 85 19 136/89 (105) 98 10/15/18 04:00 99.0 86 16 121/77 (92) 95 10/15/18 00:00 98.6 87 16 113/80 (91) 95 10/14/18 21:36 82 20 Room Air 21 10/14/18 21:00 Room Air 10/14/18 20:00 99.0 81 16 124/88 (100) 95 10/14/18 16:00 98.2 85 20 101/74 (83) 96 Intake and Output 10/14/18 10/15/18 18:59 06:59 Intake Total 2200 ml 1175 ml Output Total 700 ml 700 ml Balance 1500 ml 475 ml Intake Oral 1600 ml 650 ml IV Total 600 ml 525 ml Output Urine Total 700 ml 700 ml # Voids 6 Laboratory Tests 10/14/18 18:30: Prothrombin Time 10.0, Prothromb Time International Ratio 0.9, Fibrinogen 367 10/15/18 05:05: White Blood Count 5.5, Red Blood Count 3.35L, Hemoglobin 10.6L, Hematocrit 32.2L , Mean Corpuscular Volume 96, Mean Corpuscular Hemoglobin 31.6H, Mean Corpuscular Hemoglobin Concent 33.0, Red Cell Distribution Width 12.9, Platelet Count 228, Mean Platelet Volume 5.5L, Neutrophils (%) (Auto) 59.1, Lymphocytes ( %) (Auto) 30.1, Monocytes (%) (Auto) 5.8, Eosinophils (%) (Auto) 4.6H, Basophils (%) (Auto) 0.4, Sodium Level 137, Potassium Level 3.7, Chloride Level 103, Carbon Dioxide Level 26, Anion Gap 8, Blood Urea Nitrogen 13, Creatinine 1.2, Estimat Glomerular Filtration Rate > 60, Glucose Level 127H, Calcium Level 8.5, Calcium (Send out) [Pending], Phosphorus Level 3.2, Magnesium Level 1.9, Total Bilirubin 0.2, Aspartate Amino Transf (AST/SGOT) 21, Alanine Aminotransferase (ALT/SGPT) 22, Alkaline Phosphatase 69, Total Protein 7.4, Albumin 2.9L, Globulin 4.5, Albumin/Globulin Ratio 0.6L, Parathyroid Hormone ( Intact) [Pending], Cortisol AM Sample 7.8 Height (Feet): 6 Weight (Pounds): 170 Objective Sat: reviewed, normal Gen: well appearing, no apparent distress, GCS 15 Head: normocephalic, atraumatic Eyes: bilateral eye normal inspection, bilateral eye PERRL, bilateral eye EOMI ENT: normal pharynx, moist mucus membranes Neck: supple Respiratory: no respiratory distress, decreased breath sounds, crackles - L base CV: tachycardia consistent GI: normal inspection, normal bowel sounds, R inguinal - easily reduced Genitourinary: penis normal, scrotum normal MSK: back normal, normal range of motion Neurologic: alert, oriented x3, grossly normal Psychiatric: depressed affect Skin: normal inspection Lewis Roper MD October 15, 2018 14:43
[2018-10-15 16:00] VITALS: BP 127/82
[2018-10-15] MEDS: HYDROcodone/Acetamin 5/325 tab ORAL PRN (17:01)
--- NOTE | 2018-10-16 08:46 | Discharge Summary ---
Discharge Summary Discharge Summary _ DATE OF ADMISSION: 10/13/2018 DATE OF DISCHARGE: 10/15/2018 DISCHARGED BY: [] CONSULTANTS: Dr. Lewis Mendez BRIEF HOSPITAL COURSE: Patient is a 62-year-old male, who presented to ED via EMS due to 4 to 5 days of increased weakness, fever and chills. He also had productive cough and had greenish phlegm. He complained of swelling to his right groin. He described it as bubbling out and was able to be pushed back in. There were no skin lesions in the area. Appetite had been poor and patient felt weak. He has medical history significant for HIV. He denies any skin rash, headache, neck stiffness, nausea, vomiting, diarrhea, dysuria or joint pain. On evaluation at the ED, blood pressure was 146/100, pulse rate 118. Blood work did not show any leukocytosis. Hemoglobin was 10, hematocrit 29. Sodium was 132. Potassium 3.4. BUN was 11, creatinine was elevated to 1.4. Troponin was negative. Urinalysis showed 1+ protein, negative glucose, negative nitrate , negative leukocyte esterase, 2-4 RBC and 0-2 WBC. EKG was in sinus tachycardia with no acute changes. Chest x-ray showed left lung infiltrate read by ED physician. He was given IV bolus. He was started on Zosyn and Levaquin. He was then admitted for evaluation of pneumonia. He came in with hyponatremia, hypokalemia and hypomagnesemia. He was given IV hydration with potassium. He was given magnesium supplements. Anemia work-up was done. Serum iron was 19, percent saturation of 9. Folic acid 4 he was given folic acid and IV iron. Calcium was 7.7. PTH results pending. He was given vitamin D. Cortisol was normal. ID was consulted. He was given Rocephin. He was continued on Atripla. Full treatment was not carried out as patient left against medical advise. FINAL DIAGNOSES: Pneumonia Acute bronchitis Hyponatremia Hypokalemia Hypomagnesemia Anemia of chronic disease Anemia folic acid deficiency Right inguinal hernia, reducible, nonincarcerated HIV COPD DISPOSITION: Patient left against medical advise. I have been assigned to complete a discharge summary on this account, I was not involved with the patient's management. Kiana Regalado NP October 16, 2018 08:46
== END 2018-10-15 20:05 | disposition left against medical advice (07) | DRG 194 ==
LOC: EDSEX 15:05 → EDBD 15:05 → EMR 15:37 → 4E 15:55 → EDBEDREQ 16:15
DX: J18.9 Pneumonia, unspecified organism (principal); L03.90 Cellulitis, unspecified; E87.1 Hypo-osmolality and hyponatremia; Z21 Asymptomatic human immunodeficiency virus [HIV] infection status; E87.6 Hypokalemia; E83.42 Hypomagnesemia; J20.9 Acute bronchitis, unspecified; D63.8 Anemia in other chronic diseases classified elsewhere; D52.9 Folate deficiency anemia, unspecified; K40.90 Unilateral inguinal hernia, without obstruction or gangrene, not specified as recurrent; J44.9 Chronic obstructive pulmonary disease, unspecified
CPT/HCPCS: 36415; 71045; 80053; 80061; 81003; 82533; 82550; 82607; 82728; 82746; 82977; 83036; 83540; 83550; 83605; 83735; 83880; 83930; 83970; 84100; 84443; 84484; 84550; 85025; 85384; 85610; 85730; 86140; 87040; 87070; 87205; 93005; 94664; 96361; 96365; 96367; 96368; 99285